=== PATIENT | male | born 1990 | race Caucasian/White ===

== ENCOUNTER 2018-11-09 17:27 | Emergency (ER) | payer OTHER ==
[~2018-11-09] VITALS: Ht 185.4 cm; Wt 80.3 kg
[2018-11-09] MEDS ORDERED: Norco 5-325 Ta1 EACH PO (18:43)
[2018-11-09] MEDS ORDERED: CRUTCH2 XX (18:43)
[2018-11-09] MEDS ORDERED: KETO10 PO (18:43)
== END 2018-11-09 19:34 | disposition home or self-care (01) ==
LOC: ER 17:27
DX: M25.562 Pain in left knee (principal)
CPT/HCPCS: 29505; 73562-LT; 99283-25